=== PATIENT | female | born 1980 ===

== ENCOUNTER 2021-09-30 09:00 | Emergency (ER) | payer OTHER, SELFPAY ==
--- NOTE | 2021-09-30 09:03 | ED.URI ---
HPI - URI/Sore Throat General Chief Complaint: Upper Respiratory Infection Stated Complaint: sore throat Time Seen by Provider: 09/30/21 09:10 Source: patient Mode of arrival: ambulatory Limitations: no limitations History of Present Illness HPI Narrative: Ms. Michele is a 40-year-old female patient presenting to the clinic with complaints of sore throat, fever, and swollen lymph nodes x2 to 3 days. She reports she has taken Tylenol to alleviate the fever. Reports pain 8 out of 10 when swallowing. Also has pain with palpation of the cervical lymph nodes. No known exposure to Covid, strep, or flu. MD elicited complaint: fever and sore throat Related Data Home Medications Medication Instructions Recorded Confirmed citalopram 20 mg PO DAILY 09/30/21 09/30/21 metformin 500 mg PO DAILY 09/30/21 09/30/21 Allergies Allergy/AdvReac Type Severity Reaction Status Date / Time No Known Allergies Allergy Unverified 09/30/21 09:13 Review of Systems Review of Systems: Pertinent positives per HPI. Patient denies any fever, chills, rash, headache, visual changes, dizziness, cough, shortness of breath, chest pain, palpitations, nausea, vomiting, diarrhea, constipation, abdominal pain, or any urinary issues. [facility] Family History Family History Mother Family history of elevated blood lipids Grandparent Cerebrovascular accident Father Patient's father is Social History Social History Smoking status: Never smoker Second hand tobacco smoke exposure: No Alcohol intake: never Comments At the time of my signature, I reviewed and agree with the nursing past medical, surgical, social, and family history. There is no relevant family history pertinent to the patient complaint. Exam Narrative: General: Well-developed, obese, in no apparent distress Head: Normocephalic, atraumatic Eyes: Pupils equally round and reactive to light bilaterally, EOM intact, sclera and conjunctive clear, no discharge, lids normal Ears: TMs intact and dull, ear canals clear, no drainage, grossly hearing normal. Nose: Nares patent, no discharge, no inflammation, no sinus tenderness. Mouth: Oral pharynx without lesions or masses, good dentition, MMM. Oropharynx red, 2+ tonsillar swelling, with white exudate Neck: Supple, trachea midline, positive enlargement of anterior, no thyroid masses or goiter palpable. Cardio: Regular rate and rhythm, s1 and s2 normal, no murmur appreciated. Resp: Clear to auscultation bilaterally, no rhonchi, rales, wheezing or rubs Course Course Emergency Course: Portions of this record may have been created with voice recognition software. Level of Care: Express Care Visit Vital Signs Vital signs: Vital signs reviewed MDM - URI/Sore Throat MDM Narrative Medical decision making narrative: At the time of assessment patient is resting comfortably on the exam table. Reporting sore throat, fever, and swollen lymph nodes. She denies a cough. Centor criteria 4 out of 4. Strep screen shows faint positive line. Differential Diagnosis Differential diagnosis: Likely sinusitis, viral infection, influenza and pharyngitis Discharge Plan Discharge Clinical Impression: Acute streptococcal pharyngitis Patient Disposition: Home, Self-Care Condition: Stable Instructions: Antibiotic Form, Strep Throat (ED) Additional Instructions: Take prescription medications only as prescribed Change toothbrush in 24 hours after initiation of antibiotic. Increase fluids and stay well hydrated Tylenol/motrin for pain/fever Flonase and OTC antihistamines as directed Vicks vapor rub to open sinuses Sinus rinses for congestion Cepacol spray, cough drops, throat lozenges, warm tea with honey/lemon, gargle salt water to soothe throat BRAT diet for diarrhea Clear liq
[2021-09-30 09:07] VITALS: BP 146/76; PULSE 81; RESP 14; TEMP 37; O2SAT 99
== END 2021-09-30 09:25 | disposition home or self-care (01) ==
PROVIDERS: Emergency Provider Nurse Practitioner Family; PCP Nurse Practitioner Family
DX: J02.0 Streptococcal pharyngitis (principal); E28.2 Polycystic ovarian syndrome
CPT/HCPCS: 87081; 87880; 99203; G0463